=== PATIENT | female | born 1960 | race Caucasian/White ===

== ENCOUNTER 2017-07-07 07:21 | Observation (INO) | payer BC ==
--- NOTE | 2017-07-05 13:24 | Diagnostic Imaging Report ---
PROCEDURE:CHEST 2 VIEWS TECHNIQUE:PA and lateral views chest totally 3 radiographs INDICATION:Preoperative evaluation COMPARISON:None. FINDINGS: The lungs are clear and symmetrically inflated. No pleural effusions. Normal heart size, mediastinal contour and pulmonary vasculature. [place] left scoliosis with indwelling metal keegan. Low cervical fusion hardware. CONCLUSION: No acute cardiopulmonary abnormality Dictated by: Lemuel Pizano M.D. on 07/05/2017 at 13:27 Electronically approved by: Lemuel Pizano M.D. on 07/05/2017 at 13:27
[2017-07-05 13:27] LABS: BASOPHILS # (AUTO) 0.1 (0.0-0.1); BASOPHILS % 0.6 % (0.0-1.0); EOSINOPHILS # (AUTO) 0.2 (0.0-0.4); EOSINOPHILS % 1.8 % (0.0-6.0); HEMATOCRIT 36.8 % (34.2-44.1); HEMOGLOBIN 11.8 g/dL (12.0-16.0); LYMPHOCYTES # (AUTO) 2.2 (1.0-3.2); LYMPHOCYTES % 27.5 % (18.0-39.1); MEAN CORPUSCULAR HEMOGLOBIN 29.4 pg (28-32); MEAN CORPUSCULAR HGB CONC 32.1 g/dL (31-35); MEAN CORPUSCULAR VOLUME 91.5 fL (81-99); MONOCYTES # (AUTO) 0.7 (0.2-0.8); MONOCYTES % 8.7 % (4.4-11.3); NEUTROPHILS % 61.2 % (38.7-80.0); PLATELET COUNT 316 x10e3/uL (140-360); RED BLOOD COUNT 4.02 x10e6/uL (3.6-5.1); RED CELL DISTRIBUTION WIDTH 14.2 % (11.7-14.4)
[2017-07-05 13:38] LABS: INR 1.07; PROTHROMBIN TIME 13.1 seconds (11.9-14.5)
[2017-07-05 13:39] LABS: PARTIAL THROMBOPLASTIN TIME 24.4 seconds (23.8-35.5)
[2017-07-05 13:45] LABS: BLOOD UREA NITROGEN 13 mg/dL (7-26); BUN/CREATININE RATIO 14 (6-25); CALCIUM 9.7 mg/dL (8.4-10.2); CARBON DIOXIDE 29 mmol/L (22-29); CHLORIDE 102 mmol/L (98-107); CREATININE, SERUM 0.93 mg/dL (0.57-1.11); EST GLOMERULAR FILTRATION RATE > 60 ML/MIN (60-); GLUCOSE 95 mg/dL (74-118); SODIUM 140 mmol/L (136-145)
[~2017-07-07] VITALS: Ht 170.2 cm; Wt 108.6 kg
[~2017-07-07 07:21] MED LIST: CEFAZOLIN SOD 1 GM VIAL ONE; COSENTYX PO; FLECTOR1 EACH PO; FOLIC ACID1 MG PO; LEVOTHYROXINE88 MCG PO; LOSARTAN POTASS25 MG PO; METHOTREXATE2.5 MG PO; OXYBUTYNIN CHLOR5 M1 PO; PANTOPRAZOLE SO40 MG PO; VIT D PO
--- OUTSIDE RECORDS SUMMARY | 2017-07-07 07:24 | XMS REPORT ---
Author Author [facility] Address Unknown Phone Unavailable Care Team Providers Care Dye Reel Operator Name Role Phone MAYUR BOYKIN Unavailable Unavailable Problems This patient has no known problems. Allergies, Adverse Reactions, Alerts This patient has no known allergies or adverse reactions. Medications This patient has no known medications. Results Test Description Test Time Test Comments Text Results Atomic Results Result Comments CHEST 2 VIEWS [place] [id number] [place] [address] Patient Name: ZAIDA ESPINO MR #: [id number] : 1960 Age/Sex: 56/F Req #: [id number] Adm Physician: Ordered by: MAYUR BOYKIN MD Report #: [id number] Location: OR Room/Bed: Procedure: [id number] DX/CHEST 2 VIEWS Exam Date: 07/05/17 Exam Time: 1300 REPORT STATUS: Signed PROCEDURE: CHEST 2 VIEWS TECHNIQUE: PA and lateral views chest totally 3 radiographs INDICATION: Preoperative evaluation COMPARISON: None. FINDINGS: The lungs are clear and symmetrically inflated. No pleural effusions. Normal heart size, mediastinal contour and pulmonary vasculature. [place] left scoliosis with indwelling metal keegan. Low cervical fusion hardware. CONCLUSION: No acute cardiopulmonary abnormality Dictated by: John Pizano M.D. on 07/05/2017 at 13:27 Electronically approved by : John Pizano M.D. on 07/05/2017 at 13:27 Dictated By : JOHN PIZANO MD 1327 Transcribed By: CINDY on 07/05/17 1327 COPY TO: MAYUR BOYKIN MD
--- OUTSIDE RECORDS SUMMARY | 2017-07-07 07:24 | XMS REPORT | Summary of Care ---
Author Author PAULY Mcguire, GINNY MCNEIL Organization Unknown Address Unknown Phone Unavailable Care Team Providers Care Cnc Milling Machinist Name Role Phone SANDRA Mcguire, ELDER Sommers Unavailable YOBANI Mcguire, WEI Unavailable Unavailable PAULY Mcguire, GINNY MCNEIL Unavailable Unavailable Byrmigdalia WISDOMN, Meena Unavailable Unavailable SANDRA SOUZA HI, ELDER TAI Unavailable Unavailable Unavailable Unavailable Functional Status Name Dates Details Functional status health issues are not documented Status: Name Dates Details Cognitive status health issues are not documented Status: Problems Name Dates Details Nonspecific abnormal findings on radiological and examination of intrathoracic organs (793.2, R93.8) Status: Active Asthma (493.90, J45.909) Status: Active Encounter for screening for lipoid disorders (V77.91, Z13.220) Status: Active Right shoulder pain (719.41, M25.511) Status: Active DJD (degenerative joint disease) (715.90, M19.90) Status: Active Limb pain (729.5, M79.609) Status: Active Dizziness, nonspecific (780.4, R42) Status: Active Polyarthropathy, multiple sites (716.59, M13.0) Status: Active Psoriasis (696.1, L40.9) Status: Active Arthralgia of ankle or foot (719.47, M25.579) Status: Active Cervicalgia (723.1, M54.2) Status: Active Abnormal antibody titer (795.79, R76.8) Status: Active Hyperglycemia (790.29, R73.9) Status: Active Acute pain of left knee (719.46, M25.562) Status: Active Osteoarthritis of right hand, unspecified osteoarthritis type (715.94, M19.041 ) Status: Active Osteoarthritis of finger, 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, M19.041) Status: Active Bereavement (V62.82, Z63.4) Status: Active Allergic rhinitis due to pollen (477.0, J30.1) Status: Active Methotrexate, custodial, current use (V58.69, Z79.899) Status: Active Need for pneumococcal vaccination (V03.82, Z23) Status: Active Moderate obesity (278.00, E66.8) Status: Active History of Tobacco abuse counseling (V65.42, Z71.6) Status: Resolved Weak (780.79, R53.1) Status: Active Nausea and vomiting (787.01, R11.2) Status: Active Weakness generalized (780.79, R53.1) Status: Active Other specified hypothyroidism (244.8, E03.8) Status: Active Weakness of foot, right (734, M21.41) Status: Active 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.0, 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) Status: Active Elevated blood pressure reading without diagnosis of hypertension (796.2, R03.0 ) Status: Active Muscular dystrophy, 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, 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 Muscle cramp (729.82, R25.2) Status: Active Lumbar radiculopathy, right (724.4, M54.16) Status: Active Inflammatory arthritis (714.9, M19.90) Status: Active Urgency of urination (788.63, R39.15) Status: Active Immunocompromised (279.3, D84.9) Status: Active Need for influenza vaccination (V04.81, Z23) Status: Active Sebaceous cyst (706.2, L72.3) Status: Active Dermatitis (692.9, L30.9) Status: Active Sensory urge incontinence (788.31, N39.41) Status: Active Need for hepatitis A vaccination (V05.3, Z23) Status: Active Received influenza vaccination in current influenza season prior to admission ( V49.89, Z92.29) Status: Active Fatigue (780.79, R53.83) Status: Active Excessive weight gain (783.1, R63.5) Status: Active At risk for nutrition deficiency (V49.89, Z91.89) Status: Active B12 deficiency (266.2, E53.8) Status: Active Encounter for monitoring long-term proton pump inhibitor therapy (V58.83, Z51.81) Status: Active Mood disorder (296.90, F39) Status: Active Steatorrhea (579.8, K90.9) Status: Active Gastroesophageal reflux disease without esophagitis (530.81, K21.9) Status: Active Cough (786.2, R05) Status: Active Acute bronchitis due to other specified organisms (466.0, J20.8) Status: Active 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, 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) Status: Active Class 2 obesity with body mass index (BMI) of 36.0 to 36.9 in adult (278.00, E66.9) Status: Active Myalgia (729.1, M79.1) Status: Active Muscle spasm (728.85, M62.838) Status: Active Vitamin D deficiency disease (268.9, E55.9) Status: Active Other specified hypothyroidism (244.8, E03.8) Status: Active Sinusitis (473.9, J32.9) Status: Active Other acute sinusitis, recurrence not specified (461.8, J01.80) Status: Active Hypertension (401.9, I10) Status: Active Essential hypertension (401.9, I10) Status: Active Medications Name Dates Details Diclofenac Sodium 1 % Transdermal Gel APPLY TO LOWER EXTREMITIES, 4 GM OF GEL TO AFFECTED AREA 4 TIMES DAILY. DO NOT APPLY MORE THAN 16 GM DAILY TO ANY ONE AFFECTED JOINT. Quantity: 1 GINNY COATS M.D. * Start : 14-Feb-2014 Active 100 GM Tube Methotrexate 2.5 MG Oral Tablet TAKE 8 TABLETS BY MOUTH EVERY WEEK DIRECTED * Quantity: 40 Refills: 2 GINNY COATS M.D. * Start : 01-Nov-2014 Active Folic Acid 1 MG Oral Tablet TAKE 1 TABLET DAILY * Quantity: 30 Refills: 11 GINNY COATS M.D. * Start : 01-Nov-2014 Active Vitamin D (Ergocalciferol) 91212 UNIT Oral Capsule TAKE 1 CAPSULE WEEKLY for 12 weeks * Quantity: 12 Refills: 1 GINNY COATS M.D. * Start : 24-Apr-2015 Active Levothyroxine Sodium 88 MCG Oral Tablet TAKE 1 TABLET DAILY DIRECTED. * Quantity: 90 Refills: 1 WEI HILTON M.D. * Start : 03-Mar-2016 Active Cosentyx Sensoready Pen 150 MG/ML Subcutaneous Solution Auto-injector 300 mg SC week 0,1,2,3,4, then q4 weeks thereafter. * Quantity: 10 Refills: 5 GINNY COATS M.D. * Start : 31-Aug-2016 Active Pre-filled Pen Syringe Oxybutynin Chloride ER 5 MG Oral Tablet Extended Release 24 Hour TAKE 1 TABLET DAILY in the AM * Quantity: 30 Refills: 6 ELDER FLORES M.D. * Start : 10-Dec-2016 Active Diclofenac Sodium 75 MG Oral Tablet Delayed Release TAKE 1 TABLET TWICE DAILY * Quantity: 1 Refills: 2 GINNY COATS M.D. * Start : 03-Feb-2017 Active 60 Tablet Bottle Pancreatin 500 MG Oral Capsule TAKE 1 CAPSULE Before meals * Quantity: 90 Refills: 2 WEI HILTON M.D. * Start : 03-Mar-2017 Active Pantoprazole Sodium 40 MG Oral Tablet Delayed Release TAKE 1 TABLET BY MOUTH DAILY * Quantity: 90 Refills: 1 ELDER FLORES M.D. * Start : 29-Mar-2017 Active Amoxicillin-Pot Clavulanate ER 1000-62.5 MG Oral Tablet Extended Release 12 Hour TAKE 2 TABLETS BY MOUTH TWICE A DAY WITH FOOD * Quantity: 40 Refills: 0 ELDER FLORES M.D. * Start : 14-Apr-2017 Active Losartan Potassium 25 MG Oral Tablet TAKE 1 TABLET DAILY. * Quantity: 90 Refills: 1 ELDER FLORES M.D. * Start : 14-Apr-2017 Active Allergies and Adverse Reactions Name Dates Details Bactrim TABS (Allergy) Status: Active Codeine Derivatives (Allergy) Status: Active Dymista SUSP (Allergy) Status: Active Latex All (Allergy) Status: Active Past Medical History Name Dates Details History of Cat bite of left forearm, initial encounter (881.00, S51.852A) Status: Resolved History of hiatal hernia (V12.79, Z87.19) Status: Resolved History of influenza (V12.09, Z87.09) Status: Resolved History of Malaise (780.79, R53.81) Status: Resolved History of Scoliosis (737.30, M41.9) Status: Resolved History of serous otitis media (V12.49, Z86.69) Status: Resolved History of Tobacco abuse counseling (V65.42, Z71.6) Status: Resolved History of Tubal (633.10, O00.109) Status: Resolved History of Vitamin D insufficiency (268.9, E55.9) Status: Resolved Personal history of asthma (V12.69, Z87.09) Status: Resolved Personal history of urinary tract infection (V13.02, Z87.440) Status: Resolved Procedures Procedure Dates Details History of Cholecystectomy Completed History of Dilation And Curettage Completed History of Spinal Diskectomy Cervical Completed History of Foot Surgery Completed Immunization Name Dates Details Pneumococcal polysaccharide vaccine, 23 valent on: 21-Jan-2011 Influenza on: 29-Nov-2011 Influenza Lot #: [id number] on: 25-Jan-2014 Fluzone Quadrivalent 0.5 ML Intramuscular Suspension Prefilled Syringe Lot #: [id number] on: 01-Nov-2014 Fluzone Quadrivalent 0.5 ML Intramuscular Suspension Prefilled Syringe Lot #: [id number] on: 03-Dec-2015 Pneumovax 23 25 MCG/0.5ML Injection Injectable Lot #: [id number] on: 02-Mar-2016 Fluzone Quadrivalent 0.5 ML Intramuscular Suspension Lot #: [id number] on: 19-Oct-2016 Hepatitis A, adult Lot #: [id number] on: 10-Dec-2016 Family History Name Dates Details Fm hx-trach/bronchog mal (V16.1, Z80.1) Status: Active Name Dates Details Family history of Emphysema Status: Active Social History Name Dates Details - Status: Name Dates Details Former smoker Vital Signs Date Test Result Details 14-Apr-20178:25 BP Systolic 136 mm[Hg] Status: Comments: Location: LUE; Position: Sitting BP Diastolic 84 mm[Hg] Status: Comments: Location: LUE; Position: Sitting Height 67 in Status: Weight 233.1875 lb Status: Body Mass Index Calculated 36.52 kg/m2 Status: Body Surface Area Calculated 2.16 m2 Status: Temperature 96.2 f Status: Comments: Method: Temporal Respiration Rate 16 /min Status: Comments: Quality: Normal Heart Rate 61 /min Status: Results Date Description Value Details Results not documented Plan of Care Name Dates Details Planned Observations Planned Goals not documented Planned Encounters Appointment; GINNY COATS M.D. On: 24-May-2017 10:30 Appointment; ELDER FLORES M.D. On: 14-Jun-2017 9:00 Instructions Name Dates Details Instructions not documented Encounters Appointment; LEDY MOREL NP Encounter Diagnosis: Problem not documented On: 17-May-2015 13:15 Appointment; STEPH ORTIZ M.D. Encounter Diagnosis: Problem not documented On: 05-Aug-2015 11:00 Appointment; TRAVIS LE M.D. Encounter Diagnosis: Problem not documented On: 16-Oct-2015 10:45 Appointment; TRAVIS LE M.D. Encounter Diagnosis: Problem not documented On: 20-Nov-2015 11:00 Appointment; GINNY COATS M.D. Encounter Diagnosis: Problem not documented On: 03-Dec-2015 13:00 Appointment; DARLING PENA M.D. Encounter Diagnosis: Problem not documented On: 06-Jan-2016 16:00 Appointment; GINNY COATS M.D. Encounter Diagnosis: Problem not documented On: 08-Jan-2016 15:30 Appointment; WEI HILTON M.D. Encounter Diagnosis: Problem not documented On: 02-Mar-2016 14:15 Appointment; GINNY COATS M.D. Encounter Diagnosis: Problem not documented On: 02-Mar-2016 15:30 Appointment; NAYELY RODRÍGUEZ NP Encounter Diagnosis: Problem not documented On: 04-May-2016 11:00 Appointment; ZACK DASILVA P.A. Encounter Diagnosis: Problem not documented On: 10-May-2016 12:30 Appointment; GINNY COATS M.D. Encounter Diagnosis: Problem not documented On: 01-Jun-2016 15:30 Appointment; WEI HILTON M.D. Encounter Diagnosis: Problem not documented On: 03-Jun-2016 14:45 Appointment; DANNA SYED M.D. Encounter Diagnosis: Problem not documented On: 14-Jun-2016 13:00 Appointment; BRANDAN ABBASI M.D. Encounter Diagnosis: Problem not documented On: 02-Jul-2016 9:45 Appointment; DANNA SYED M.D. Encounter Diagnosis: Problem not documented On: 16-Aug-2016 14:30 Appointment; GINNY COATS M.D. Encounter Diagnosis: Problem not documented On: 31-Aug-2016 15:00 Appointment; WEI HILTON M.D. Encounter Diagnosis: Problem not documented On: 19-Oct-2016 8:00 Appointment; BECKIE WINN P.A. Encounter Diagnosis: Problem not documented On: 23-Oct-2016 11:00 Appointment; NAYELY RODRÍGUEZ NP Encounter Diagnosis: Problem not documented On: 02-Nov-2016 10:30 Appointment; GINNY COATS M.D. Encounter Diagnosis: Problem not documented On: 30-Nov-2016 14:00 Appointment; ELDER FLORES M.D. Encounter Diagnosis: Problem not documented On: 10-Dec-2016 8:30 Appointment; GINNY COATS M.D. Encounter Diagnosis: Problem not documented On: 03-Feb-2017 14:30 Appointment; WEI HILTON M.D. Encounter Diagnosis: Problem not documented On: 03-Mar-2017 10:15 Appointment; GINNY COATS M.D. Encounter Diagnosis: Problem not documented On: 22-Mar-2017 10:00 Appointment; LEDY MOREL NP Encounter Diagnosis: Problem not documented On: 02-Apr-2017 9:15 Appointment; ELDER FLORES M.D. Encounter Diagnosis: Problem not documented On: 14-Apr-2017 8:30
[2017-07-07] MEDS ORDERED: BUPIVACAINE 0.5%/EPI 30 ML SDV INJ ONE (07:26)
[2017-07-07] MEDS ORDERED: GELATIN SPONGE SZ 100 ONE (07:26)
[2017-07-07] MEDS ORDERED: THROMBIN FOR SOLN 5,000 UNIT VIAL ONE (07:26)
[2017-07-07] MEDS ORDERED: BACITRACIN 50,000 UNIT VIAL ONE (07:27)
[2017-07-07] MEDS ORDERED: ACETAMINOPHEN 1000 MG/100 ML 100 ML IV ONE (07:32)
[2017-07-07] MEDS ORDERED: LIDOCAINE HCL (LTA) 4 ML SOLN ONE (07:32)
[2017-07-07] MEDS ORDERED: SCOPOLAMINE 1.5 MG PATCH ONE (07:33)
[2017-07-07] MEDS ORDERED: ONDANSETRON HCL INJ 2 MG/ML VIAL IV PRN (09:15)
[2017-07-07] MEDS ORDERED: ZOLPIDEM TARTRATE 5 MG TAB PO PRN (09:15)
[2017-07-07] MEDS ORDERED: PROMETHAZINE HCL (IM) 25 MG/ML VIAL IM PRN (09:15)
[2017-07-07] MEDS ORDERED: SECUKINUMAB 300 MG PO SCH (09:15)
[2017-07-07] MEDS ORDERED: MORPHINE SULFATE 5 MG/ML VIAL IM PRN (09:15)
[2017-07-07] MEDS ORDERED: MAGNESIUM/ALUMINUM/SIMETHICONE 30 ML UDC PO PRN (09:15)
[2017-07-07] MEDS ORDERED: CEPACOL SORE THROAT LOZENGES PO PRN (09:15)
[2017-07-07] MEDS ORDERED: HYDROMORPHONE 2MG/ML INJ IV PRN (09:15)
[2017-07-07] MEDS ORDERED: ACETAMINOPHEN 325 MG TAB PO PRN (09:15)
[2017-07-07] MEDS ORDERED: FENTANYL CITRATE/PF 100MCG/2 ML INJ ONE ×2 (09:32→18:31)
[2017-07-07] MEDS ORDERED: MORPHINE SULFATE 2 MG/ML SYR IM PRN (10:00)
[2017-07-07] MEDS ORDERED: ONDANSETRON HCL 4 MG ORAL DISINTEGRATING TAB SL PRN ×2 (10:15)
[2017-07-07] MEDS: LACTATED RINGER'S 1,000 ML IV SCH ×2 (10:40→21:37)
--- NOTE | 2017-07-07 10:44 | Operative Report ---
DATE OF PROCEDURE: July 07, 2017 PREOPERATIVE DIAGNOSIS: C4-C5 disk herniation above the level of previous C5-C7 fusion with C5 radiculopathy, M50.121. POSTOPERATIVE DIAGNOSIS: C4-C5 disk herniation above the level of previous C5-C7 fusion with C5 radiculopathy, M50.121. PROCEDURES 1. C4-C5 anterior cervical diskectomy and allograft fusion, 78626. 2. Preparation of MTF cortical cancellous allograft, 95561. 3. C4-C5 anterior cervical plating with Synthes ZP end-plate, 06063. 4. Removal of C5-C7 plate, . 5. Exploration of C5-C7 fusion, . ANESTHESIA: General. INDICATIONS: Patient is a 56-year-old woman who has previously undergone C5-C6 and C6-C7 anterior cervical diskectomy, fusing and plating by dc in the distant past with excellent results. She now presents with a new right-sided disk herniation at C4-C5 symptomatic with intractable right C5 radiculopathy. She was taken to the operating room for decompression and fusion of the C4-C5 segment and exploration of her fusion and removal of the old plate. PROCEDURE: After the induction of general anesthesia, the patient was placed on the operating table in the supine position. The right side of the neck was prepped and draped in a sterile fashion. The fluoroscopic C-arm was positioned in cross-table lateral orientation. A small transverse incision was created on the right side of the neck superimposed on the C5 vertebral body as determined by fluoroscopy. The platysma was divided in line with the incision. A subplatysmal dissection was carried out. An avascular plane of dissection was developed medial to the sternocleidomastoid muscle. It was followed medial to the carotid sheath through the previous scar layer to the anterior border the cervical spine. The esophagus was retracted to the left. The scar overlying the previous anterior cervical plate was resected. The plate was exposed. A large anterior osteophyte overlying the superior aspect of the plate was resected. The superior edge of the plate was found to be close to the C4-C5 disk space. In order for adequate decompression and fusion of the C4-C5 segment, it was necessary to remove the C5-C7 plate. Each of the 6 locking screws and each of the 6 bone screws within the C5-C7 plate were unscrewed and removed. The plate was mobilized and removed. The underlying fusion was explored at C5-C6 and C6-C7 and found to be solid. The residual anterior osteophyte at C4-C5 was then resected. The Jay posts were inserted into C4 and C5. The Jay distractor was used to distract the disk space. The contents of the C4-C5 disk were evacuated with curettes and pituitary rongeurs. Under the operating microscope, the posterior osteophytes were meticulously resected with a 2 mm cutting bur until they were completely removed. The posterior annulus of the disk, a large amount of herniated disk material, and the posterior longitudinal ligament were resected layer by layer until the dura was fully exposed and decompressed. The medial aspects of the uncinate processes were resected bilaterally to expose and decompress the origins of the corresponding nerve roots. After satisfactory decompression had been achieved, the end-plates were prepared for fusion. The disk space was sized and found to be 8 mm in height. A piece of MTF cortical cancellous allograft measuring 8 mm in thickness was selected and loaded onto a Synthes ZP end-plate. The construct was inserted into the C4-C5 disk space under distraction and fluoroscopic guidance. The distraction was released and the distraction posts were removed. The plate was then screwed to the end-plates of C4 and C5 with 2 pairs of 14-mm screws. All screws were locked. An excellent construct was obtained. The wound was copiously irrigated with Bacitracin solution. Meticulous hemostasis was secured. Retractor was removed. The platysma was closed with 3-0 Vicryl sutures. The skin was closed with 4-0 Monocryl sutures in a subcuticular fashion. Steri-Strips and dry dressing were applied. The patient was awakened, extubated and taken to the postanesthesia care unit in stable condition. No intraoperative complications were encountered. Estimated blood loss 10 mL. Job#: [id number] JANIS
[2017-07-07 10:53] VITALS: BP 144/82
[2017-07-07] MEDS: OXYCODONE/ACETAMINOPHEN 5-325 1 EACH TABLET PO PRN ×2 (11:20→18:40)
[2017-07-07] MEDS: CARISOPRODOL 350 MG TAB PO PRN ×2 (11:20→18:40)
[2017-07-07 11:40] VITALS: BP 144/82
[2017-07-07] MEDS: CEFAZOLIN SOD 1 GM VIAL IV SCH ×2 (13:00→21:37)
[2017-07-07] MEDS ORDERED: CEFAZOLIN SOD 1 GM/NS 50ML 50 ML IV SCH (14:00)
[2017-07-07 15:37] VITALS: BP 110/66
[2017-07-07] MEDS ORDERED: SEVOFLURANE INHAL SOLN 250 ML PEN BTL ONE (17:52)
[2017-07-07] MEDS ORDERED: PROPOFOL IV EMULSION 10 MG/ML 20 ML VIAL ONE (17:52)
[2017-07-07] MEDS ORDERED: LIDOCAINE HCL 2% LOCAL INJ 5 ML SDV VIAL INJ ONE (17:52)
[2017-07-07] MEDS ORDERED: LIDOCAINE HCL 2% JELLY 5 ML TUBE ONE (17:52)
[2017-07-07] MEDS ORDERED: ROCURONIUM BROMIDE 10 MG/ML 5ML VIAL ONE (17:52)
[2017-07-07] MEDS ORDERED: ONDANSETRON HCL INJ 2 MG/ML VIAL ONE (17:52)
[2017-07-07] MEDS ORDERED: DEXAMETHASONE SOD PHOS INJ 4 MG/ML VIAL ONE (17:52)
[2017-07-07] MEDS ORDERED: MIDAZOLAM HCL 2 MG/2 ML VIAL ONE (18:31)
[2017-07-07 19:15] VITALS: BP 108/59
[2017-07-07 20:00] VITALS: BP 108/59
[2017-07-07 21:00] VITALS: BP 108/59
[2017-07-08 00:30] VITALS: BP 109/64
[2017-07-08 05:00] VITALS: BP 110/60
[2017-07-08] MEDS ORDERED: LEVOTHYROXINE SODIUM 88 MCG TAB PO SCH ×2 (06:00→09:00)
[2017-07-08] MEDS: CEFAZOLIN SOD 1 GM VIAL IV SCH (06:01)
[2017-07-08] MEDS: LACTATED RINGER'S 1,000 ML IV SCH (06:01)
[2017-07-08 08:09] VITALS: BP 111/57
--- NOTE | 2017-07-08 08:25 | Diagnostic Imaging Report ---
PROCEDURE: X-RAY CERVICAL SPINE, TWO VIEWS COMPARISON:None. INDICATIONS:STATUS POST CERVICAL SPINE SURGERY FINDINGS: See conclusion. CONCLUSION: AP and lateral views of the cervical spine from the skull base to T1 show post surgical changes of intervertebral disc spacer placement at C4-C5.. The visualized vertebral bodies are well-aligned. Osseous fusion of C5, C6, and C7 at the endplates is also noted. There is mild pre-vertebral soft-tissue swelling consistent with recent surgery. Dictated by: Timmy Pearson M.D. on 07/08/2017 at 8:27 Electronically approved by: Timmy Pearson M.D. on 07/08/2017 at 8:27
[2017-07-08] MEDS ORDERED: LOSARTAN POTASSIUM 25 MG TAB PO SCH (09:00)
[2017-07-08] MEDS ORDERED: FOLIC ACID 1 MG TAB PO SCH (09:00)
[2017-07-08] MEDS ORDERED: PANTOPRAZOLE SOD 40 MG TABEC PO SCH (09:00)
[2017-07-08] MEDS ORDERED: OXYBUTYNIN CHLORIDE XL 5 MG TAB PO SCH (09:00)
[2017-07-08] MEDS ORDERED: NORCO 7.5-3251 EACH PO (10:48)
[2017-07-08] MEDS ORDERED: SOMA350 MG PO (11:24)
[2017-07-08] MEDS ORDERED: ULTRAM 50MG50 MG PO (11:25)
[2017-07-08 11:30] VITALS: BP 119/65
[2017-07-10] MEDS ORDERED: ERGOCALCIFEROL 50,000 UNIT CAP PO SCH (09:00)
== END 2017-07-08 11:42 | disposition home or self-care (01) ==
LOC: OR 07:21 → IMCU 09:42
PROVIDERS: ADMIT Neurological Surgery; ATTEND Neurological Surgery
DX: M50.121 Cervical disc disorder at C4-C5 level with radiculopathy (principal); I10 Essential (primary) hypertension; E03.9 Hypothyroidism, unspecified; L40.50 Arthropathic psoriasis, unspecified; Z87.891 Personal history of nicotine dependence
CPT/HCPCS: 20931; 22551; 22830; 22845; 22855; 36415; 71046; 72040; 77003; 80048; 85025; 85610; 85730; 86850; 86900; 88300; 88304; 93005; C1713; G0378 ×2; J0690 ×2; J1100; J2001 ×2; J2250; J2405; J7120 ×2; S0164